=== PATIENT | male | born 1970 | race Caucasian/White ===

== ENCOUNTER 2018-06-09 02:08 | Outpatient (CLI) | payer MEDICARE, MEDICAID, SELFPAY ==
[2018-06-09 11:09] LABS: Hemoglobin A1C 5.6 % (4.5-6.2)
[2018-06-09 11:31] LABS: Cholesterol 188 mg/dL (50-200); HDL Cholesterol 30 mg/dL (40-60); LDL CHOLESTEROL 86 mg/dL (<100); TSH 1.93 uIU/mL (0.358-3.74); Triglyceride 393 mg/dL (30-150)
== END 2018-06-09 02:28 ==
PROVIDERS: PCP Emergency Medicine; Visit Provider Emergency Medicine
DX: R53.83 Other fatigue (principal); E78.5 Hyperlipidemia, unspecified; G40.309 Generalized idiopathic epilepsy and epileptic syndromes, not intractable, without status epilepticus; F84.0 Autistic disorder; Z79.899 Other long term (current) drug therapy
CPT/HCPCS: 36415; 80061; 83721; 83036; 84443

== ENCOUNTER → 2019-01-11 11:15 | Outpatient (BNVA) | payer MEDICARE, MEDICAID, SELFPAY | PROVIDERS: PCP Emergency Medicine; Referring Provider Emergency Medicine; Visit Provider Surgery | DX: L98.9 Disorder of the skin and subcutaneous tissue, unspecified (principal) | CPT/HCPCS: 99211; 99213 ==

== ENCOUNTER 2019-12-22 02:18 | Outpatient (CLI) | payer MEDICARE, MEDICAID, SELFPAY ==
[2019-12-22 12:37] LABS: Abs Immature Grans 0.03 k/cumm (0.0-0.09); Absolute Basophil Count 0.01 k/cumm (0.0-0.2); Absolute Lymphocyte Count 2.19 k/cumm (1.2-3.4); Absolute Monocyte Count 0.65 k/cumm (0.11-0.7); Absolute Neutrophil Count 4.08 k/cumm (1.2-6.7); Basophils % 0.1; HGB 15.7 g/dL (13.5-17.5); Immature Grans % 0.4 %; Lymphocytes % 31.5; Mean Corp. HGB Concentration 34.1 g/dL (32.0-36.0); Mean Corpuscular Hemoglobin 28.8 pg (27.0-33.0); Mean Corpuscular Volume 84.4 fL (80-95); Mean Platelet Volume 9.5 fL (8.0-11.0); Monocytes % 9.3; Neutrophils % 58.7; Platelet Count 228 x1000/uL (130-400); RBC 5.45 m/cumm (4.50-6.00); White Blood Cell Count 6.96 k/cumm (4.4-10.8)
[2019-12-22 12:42] LABS: ALT 17 U/L (16-63); AST 16 U/L (15-37); Albumin 4.1 g/dL (3.4-5.0); Alkaline Phosphatase 83 U/L (46-116); Anion Gap 6.8 mmol/L (3-11); BUN 11 mg/dL (7-18); Bilirubin, Total 0.4 mg/dL (0.2-1.0); CO2 31.2 mmol/L (21.0-32.0); CREATININE 1.11 mg/dL (0.70-1.30); Calcium 9.1 mg/dL (8.5-10.1); Chloride 101 mmol/L (98-107); Glucose 106 mg/dL (74-106); Potassium 4.4 mmol/L (3.5-5.1); Sodium 139 mmol/L (136-145); Total Protein 8.1 g/dL (6.4-8.2)
[2019-12-22 12:53] LABS: TROPONIN-I 8.4 ug/mL (4.0-12.0)
== END 2019-12-22 02:38 ==
PROVIDERS: PCP Emergency Medicine; Visit Provider Emergency Medicine
DX: G40.309 Generalized idiopathic epilepsy and epileptic syndromes, not intractable, without status epilepticus (principal); J45.909 Unspecified asthma, uncomplicated; Z51.81 Encounter for therapeutic drug level monitoring; Z79.899 Other long term (current) drug therapy
CPT/HCPCS: 36415; 80053; 80156; 85025

== ENCOUNTER 2020-12-05 11:04 | Outpatient (CLI) | payer MEDICARE, MEDICAID, SELFPAY ==
[2020-12-05 13:24] LABS: ALT 18 U/L (16-63); AST 14 U/L (15-37); Albumin 4.1 g/dL (3.4-5.0); Alkaline Phosphatase 92 U/L (46-116); Bilirubin, Direct 0.1 mg/dL (0.0-0.2); Bilirubin, Total 0.5 mg/dL (0.2-1.0); Total Protein 7.8 g/dL (6.4-8.2)
[2020-12-05 13:40] LABS: Calculated LDL 100 mg/dL (<100); Cholesterol 190 mg/dL (<200); HDL Cholesterol 32 mg/dL (40-60); TROPONIN-I 6.9 ug/mL (4.0-12.0); Triglyceride 292 mg/dL (<150)
== END 2020-12-05 11:05 | disposition home or self-care (01) ==
LOC: LOS 11:05
PROVIDERS: PCP Emergency Medicine; Visit Provider Emergency Medicine
DX: G40.409 Other generalized epilepsy and epileptic syndromes, not intractable, without status epilepticus (principal); Z51.81 Encounter for therapeutic drug level monitoring; Z79.899 Other long term (current) drug therapy; E78.5 Hyperlipidemia, unspecified
CPT/HCPCS: 36415; 80061; 80076; 80156

== ENCOUNTER 2021-12-12 16:24 | Outpatient (REF) | payer MEDICARE, MEDICAID, SELFPAY | END 2021-12-12 16:25 | disposition home or self-care (01) | LOC: LBN 16:24 | PROVIDERS: PCP Family Medicine; Visit Provider Family Medicine | DX: K60.3 Anal fistula (principal) | CPT/HCPCS: 87070; 87205 ==

== ENCOUNTER 2021-12-20 03:27 | Outpatient (CLI) | payer MEDICARE, MEDICAID, SELFPAY ==
[2021-12-20 12:40] LABS: HGB 15.9 g/dL (13.5-17.5); MCH 28.3 pg (27.0-33.0); MCHC 33.1 % (32.0-36.0); MCV 86 fL (80-95); MPV 9.4 fL (8.0-11.0); Platelet Count 207 10^3/uL (130-400); RBC 5.61 10^6/uL (4.36-5.78); RDW 12.7 % (11.8-14.1); RDW-SD 39.6 fL; WBC 5.72 10^3/uL (4.4-10.8)
[2021-12-20 12:53] LABS: ALT 17 U/L (16-63); AST 16 U/L (15-37); Albumin 4.1 g/dL (3.4-5.0); Alkaline Phosphatase 98 U/L (46-116); Anion Gap 4.3 mmol/L (3-11); BUN 12 mg/dL (7-18); Bilirubin, Total 0.5 mg/dL (0.2-1.0); CO2 32.7 mmol/L (21.0-32.0); Calcium 9.1 mg/dL (8.5-10.1); Calculated LDL 103 mg/dL (<100); Chloride 104 mmol/L (98-107); Cholesterol 205 mg/dL (<200); Glucose 105 mg/dL (74-106); HDL Cholesterol 37 mg/dL (40-60); Potassium 4.8 mmol/L (3.5-5.1); Sodium 141 mmol/L (136-145); TROPONIN-I 6.6 ug/mL (4.0-12.0); Total Protein 7.8 g/dL (6.4-8.2); Triglyceride 327 mg/dL (<150)
[2021-12-20 22:50] LABS: PSA, Screening 0.5 ng/mL (<=2.5)
[2021-12-21 10:08] LABS: HIV-1/2 Ag & Ab Screen Negative (Negative)
[2021-12-21 10:19] LABS: Hepatitis C Ab w Rflx HCV PCR Negative (Negative)
== END 2021-12-20 03:28 | disposition home or self-care (01) ==
LOC: LOS 03:27
PROVIDERS: Family Medicine; PCP Family Medicine; Visit Provider Family Medicine
DX: F84.0 Autistic disorder; G40.309 Generalized idiopathic epilepsy and epileptic syndromes, not intractable, without status epilepticus; Z12.5 Encounter for screening for malignant neoplasm of prostate; I10 Essential (primary) hypertension; K59.09 Other constipation; K60.1 Chronic anal fissure; B99.9 Unspecified infectious disease
CPT/HCPCS: 36415; 80053; 80061; 84153; 85027; 86803; 87389; 99213; 99214; 80156

== ENCOUNTER → 2022-01-11 00:34 | Outpatient (CLI) | payer MEDICARE, MEDICAID, SELFPAY ==
--- NOTE | 2022-01-11 07:00 | DI.CT_ITS ---
Exam(s) CT PELVIC WO EXAM: CT PELVIC WO CLINICAL HISTORY: preOp planning of fistula surgery,K60.2,K60.3,K60.1. TECHNIQUE: Imaging Protocol: Axial computed tomography images with coronal and sagittal reformatted images were created and reviewed. CONTRAST MATERIAL: Oral: Yes. The oral contrast has gotten to the level of the terminal ileum. COMPARISON: No exams were available for comparison FINDINGS: PELVIS: Abdominal Aorta: Abdominal portion non-dilated. Bowel: No obstruction or bowel wall thickening. Appendix is unremarkable. Peritoneal Cavity: No ascites, collection or mesenteric inflammatory response. No free air is identif ied. Soft Tissues: There are bilateral fat containing inguinal hernias, left larger than right. Bladder: The bladder is incompletely distended. There is thickening of the wall of the urinary bladd er. Reproductive Organs: Mildly enlarged prostate gland. Lymph Nodes: Within normal limits. Bones: Within normal limits. IMPRESSION: 1. No acute abnormality. 2. Thickening of the wall of the urinary bladder. This may be due to underdistention. Inflammatory/ infectious cystitis, bladder outlet obstruction or neurogenic bladder may also have this appearance. 3. Bilateral fat containing inguinal hernias. RADIATION DOSE DELIVERED: 454.61mGy.cmTotal DLP DATA REPOSITORY: All CT scans at this facility are submitted to the National Radiology Data Registry (NRDR) Dose Index Registry (DIR) with the [employer] (ACR). RADIATION OPTIMIZATION: All CT scans at this facility use at least one of these dose optimization te chniques: automated exposure control; mA and/or kV adjustment per patient size (includes targeted exa ms where dose is matched to clinical indication); or iterative reconstruction.
== END ==
PROVIDERS: PCP Family Medicine; Visit Provider Surgery
DX: F84.0 Autistic disorder (principal); K59.09 Other constipation; K60.1 Chronic anal fissure; K60.2 Anal fissure, unspecified; K60.3 Anal fistula; K40.20 Bilateral inguinal hernia, without obstruction or gangrene, not specified as recurrent; R93.89 Abnormal findings on diagnostic imaging of other specified body structures; Z01.818 Encounter for other preprocedural examination
CPT/HCPCS: 72192

== ENCOUNTER 2022-03-01 01:38 | Outpatient (CLI) | payer MEDICARE, MEDICAID, SELFPAY ==
[2022-03-01 10:45] LABS: Source Nasal/Nares
[2022-03-01 16:54] LABS: COVID-19 PCR Negative (Negative)
== END 2022-03-01 01:39 | disposition home or self-care (01) ==
LOC: LBO 01:38
PROVIDERS: PCP Family Medicine; Visit Provider Surgery
DX: Z01.818 Encounter for other preprocedural examination (principal); Z20.822 Contact with and (suspected) exposure to COVID-19
CPT/HCPCS: 87635

== ENCOUNTER 2022-03-05 09:02 | Observation (INO) | payer MEDICARE, MEDICAID, SELFPAY ==
[2022-03-05] VITALS (8 sets, daily range): BP systolic 91–143; BP diastolic 61–93; PULSE 69–90; RESP 15–22; TEMP 36.3–36.8; O2SAT 92–98; BMI 34.3
[2022-03-05] MEDS: Lidocaine/Prilocaine Cream 5 GM TUBE TP (10:00)
[2022-03-05] MEDS: Gabapentin 300 MG CAP 600 MG PO (10:05)
[2022-03-05] MEDS: Acetaminophen 500 MG TAB 1000 MG PO ×3 (10:05→22:18)
[2022-03-05] MEDS: Lactated Ringers 1,000 ML 100 ML IV (10:16)
[2022-03-05] MEDS: CIPROFLOXACIN 400 MG/200 ML BAG 200 MG IVPB (10:22)
[2022-03-05] MEDS: metroNIDAZOLE 500 MG/100 ML BAG 100 MG IVPB ×2 (11:30→19:41)
--- NOTE | 2022-03-05 12:11 | W.ANESPRE ---
General Info Date of Service Date Performed: 03/05/22 Height: 5 ft 4 in Weight: 90.8 kg Body Mass Index (BMI): 34.3 Surgical Procedure: Operation Date: 03/05/22 10:55 Proposed Procedure Side Surgeon p Fistulectomy Whitney Callahan, DO Meds Allergies and Home Medications Allergies Allergy/AdvReac Type Severity Reaction Status Date / Time No Known Allergies Allergy Verified 03/05/22 09:36 Home Medication Medication Instructions Recorded aripiprazole 20 mg tablet (Abilify) 20 mg PO HS ##90 06/07/13 diazepam 10 mg tablet 10 mg PO QHS 06/07/13 escitalopram oxalate 20 mg tablet 20 mg PO QAM ##90 06/07/13 lorazepam 1 mg tablet 1 mg PO BID 06/07/13 psyllium husk 2.6 gram/4.1 gram 1 tbs PO DAILY 06/07/13 oral powder risperidone 3 mg tablet 1.5 tab PO HS ##90 06/07/13 zolpidem 10 mg tablet 10 mg PO QHS 06/07/13 carbamazepine 200 mg 200 mg PO .AM 05/22/18 capsule,extended release [id number] simvastatin 20 mg tablet 20 mg PO DAILY #90 tab-caps 07/07/21 propranolol 120 mg capsule,24 120 mg PO DAILY #1 cap 07/30/21 hr,extended release albuterol sulfate 90 mcg/actuation 2 puff inhalation Q4H PRN ##3 11/07/21 aerosol inhaler carbamazepine 100 mg 300 mg PO DAILY 12/12/21 capsule,extended release [id number] Current Visit Medications: Current Medications Generic Name Dose Route Start Last Admin Trade Name Cameron PRN Reason Stop Dose Admin Acetaminophen 1,000 mg 03/05/22 06:00 03/05/22 10:05 Acetaminophen 500 Mg Tab PO 03/31/22 23:59 1,000 mg PREOP SHARDA Administration Acetaminophen 1,000 mg 03/05/22 16:00 Acetaminophen 325 Mg Tab PO Q6H SHARDA Diazepam 5 mg 03/05/22 06:00 Diazepam 5 Mg Tab PO 03/05/22 18:00 PREOP SHARDA Dibucaine 28 gm 03/05/22 13:00 Dibucaine 1% 28 Gm Tube TP 03/05/22 18:00 DIRECTED SHARDA Gabapentin 600 mg 03/05/22 06:00 03/05/22 10:05 Gabapentin 300 Mg Cap PO 03/31/22 23:59 300 mg PREOP SHARDA Administration Ciprofloxacin 400 mg in 200 mls @ 200 mls/hr 03/05/22 06:00 03/05/22 10:22 Cipro I.V. IVPB 03/05/22 18:00 200 mls/hr PREOP SHARDA Administration Protocol Metronidazole 500 mg in 100 mls @ 100 mls/hr 03/05/22 06:00 03/05/22 11:30 Flagyl IVPB 03/05/22 18:00 100 mls/hr PREOP SHARDA Administration Ringer's Solution 1,000 mls @ 100 mls/hr 03/05/22 06:15 03/05/22 10:16 IV 100 mls/hr INFUSION SHARDA Administration IV Miscellaneous Supplies 1 each 03/05/22 06:00 Iv Access IV 03/31/22 23:59 DIRECTED SHARDA Ibuprofen 600 mg 03/05/22 01:00 Ibuprofen 600 Mg Tab PO Q6H SHARDA Ketorolac Tromethamine 15 mg 03/05/22 00:09 Ketorolac 15 Mg/Ml Vial IVP 03/05/22 00:10 NOW ONE Lidocaine/Prilocaine 5 gm 03/05/22 06:00 03/05/22 10:00 Lidocaine/Prilocaine Cream 5 Gm Tube TP 03/05/22 18:00 5 applic DIRECTED SHARDA Administration Lorazepam 1 mg 03/05/22 06:00 Lorazepam 2 Mg/Ml Vial IVP 03/05/22 18:00 PREOP SHARDA Oxycodone HCl 5 mg 03/05/22 09:00 Oxycodone 5 Mg Tab PO Q3H PRN PRN Pain Sodium Chloride 0 ml 03/05/22 06:00 Normal Saline Flush 10 Ml Syr IV 03/31/22 23:59 PRN PRN Sodium Chloride 0 ml 03/05/22 06:00 Normal Saline 10 Ml Vial IJ 03/31/22 23:59 DIRECTED PRN Sterile Water 0 ml 03/05/22 06:00 Water,Injection,Sterile 10 Ml Vial IJ 03/31/22 23:59 DIRECTED PRN Tramadol HCl 100 mg 03/05/22 00:09 Tramadol 50 Mg Tab PO Q6H PRN PRN Pain PFSH Active Problems Active Problems: Problem Status Onset Code Chronic infection B99.9 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 Anal fissure and fistula K60.2, K60.3 Chronic constipation K59.09 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 Autistic disorder F84.0 Medical History Medical History Asthma Generalized convulsive epilepsy Remote, patient has been on Tegretol without any breakthrough seizures Genital herpes simplex perirectal Hyperlipidemia Keloid scar Mild intermittent asthma Remote history of symptoms, as needed albuterol use., Rarely needed Surgical History Surgical History Biopsy, Soft Tissue (04/02/17) anal lesion biopsy Circumcision (~2000) Tobacco Smoking/Tobacco Use Status: Never Alcohol Alcohol Intake: never Substance Use Substance use: Never Substance use type: does not use Counseling provided: none Vital Signs and Lab Results Vital Signs Most Recent Vital Signs in EMR: Most Recent Vital Signs Temp Pulse Resp BP Pulse Ox 36.3 C L 69 16 143/93 H 98 03/05/22 09:28 03/05/22 09:28 03/05/22 09:28 03/05/22 09:28 03/05/22 09:28 Lab Results Blood Type / Crossmatch: No Data to Display Complete Blood Count: No Data to Display Complete Metabolic Panel: No Data to Display Liver Function Panel: No Data to Display Coagulation Panel: No Data to Display Cardiac Panel: No Data to Display Arterial Blood Gas: No Data to Display Venous Blood Gas: No Data to Display Pancreas Panel: No Data to Display Thyroid Panel: No Data to Display Infectious Disease: Coronavirus (COVID-19)(PCR) Negative (Negative) 03/01/22 10:27 Coronavirus 2019 Source Nasal/Nares 03/01/22 10:27 Blood Cultures: No Data to Display Toxicology Panel: No Data to Display Anesthesia Assessment and Plan Anesthesia History Personal History: No History of Anesthesia Complications and No History of General Anesthesia Family History: No Family History of Anesthesia Complications Exercise Tolerance Exercise Tolerance: Metabolic Equivalents>4 Pertinent Negatives Pertinent Negatives: No Symptoms of GERD, No Major Cardiovascular Symptoms or Complaints, No Major Pulmonary Symptoms or Complaints and No History of CVA/TIA Cardiac & Pulmonary Exam Cardiac Exam: Normal S1/S2 Heart Sounds Pulmonary Exam: Clear Bilateral Breath Sounds Implantable Cardiac Device Does patient have a Pacemaker or an ICD?: No Airway Exam Known Difficult Airway: No Mallampati Class: 2 Mouth Opening: Normal (> 3cm) Thyromental Distance: Greater than 3 cm Neck Range of Motion: Full ROM Neck Circumference: Normal Teeth Condition: Normal Dentition ASA Classification ASA Score: ASA 2 Emergency Case?: No NPO Status NPO Status: NPO Clears >2 hours, Solids >8 hours Anesthesia Plan Resuscitation Status: Full Code Anesthesia Technique: General Anesthesia Airway Planned: Endotracheal Tube Monitors Used: Standard Monitors
--- NOTE | 2022-03-05 12:22 | HPE_ITS ---
Date of service: 03/05/22 Time of Service: 12:23 Assessment and Plan Assessment and plan (1) Chronic infection: Status: Acute (2) Chronic posterior anal fissure: Status: Acute Assessment and plan: see HPI (3) Anal fissure and fistula: Status: Acute (4) Chronic constipation: Status: Acute (5) Perianal fistula: Status: Acute (6) Autistic disorder: Status: Acute (7) Mild intermittent asthma: (8) Hyperlipidemia: (9) Asthma: History of Present Illness Narrative: Patient patient cannot give any history. All history is taken from his caregivers. They say there is been no interval change in his history or his medical patients. [facility] PATIENT NAME:? Stephon Cope UNIT #:? ? [id number] ADMITTING PROVIDER:? Whitney Callahan DO ACCOUNT #: ? [id number] ? PRIMARY CARE PROVIDER: RINKU OLEA MD ? DATE OF ADMIT:? ? 12/20/21 : ? 1970 ? Assessment & Plan (1) Perianal fistula: (2) Autistic disorder: Chronic -I did review all his notes in his chart regarding this.? It is questionable if this started with trauma or not. On exam today he does appear to have a mixed fistula with both an intersphincteric and an extra sphincteric component.? Patient will not allow for complete exam due to his severe autism. There is no way patient is going to allow an MRI or an ultrasound. We will get a CT scan. But ultimately I think he is going to require going to the OR for diagnosis.? He has never had problems with anesthesia in the past.? I will discuss this with his caregiver.? Because this is been going on for so I will long and the limited exam I can do this is most likely a complex fistula.? It is most likely going to result in multiple trips to the operating room for repair.? We will do initial evaluation, and further recommendations based on what that shows.? If this is a very complex fistula he may require evaluation by colorectal at [facility]. Also as he is not amendable to doing much wound care and cooperating, and this may be difficult to get this area to heal I will discuss his care with his guardian. 30 minutes is spent in consultation today (3) Chronic constipation: (4) Anal fissure and fistula: (5) Chronic posterior anal fissure: (6) Chronic infection: ?Orders C-Reactive Protein 10 Days F84.0 - Autistic disorder, K59.0 9 - Other constipation, K60.1 - Chronic anal fissure, K60.2 - Anal fissure, unspecified, K60.3 - Anal fistula ? CT pelvic wo 10 Days F84.0 - Autistic disorder, K59.0 9 - Other constipation, K60.1 - Chronic anal fissure, K60.2 - Anal fissure, unspecified, K60.3 - Anal fistula ? Plan Detail Total time on date of encounter, ([id number] and non [id number]) (minutes): 30 Time was spent: reviewing prior notes and diagnostics, providing direct patient care, ordering diagnostics and/or referrals, documenting today's visit, updating the EMR, coordinating care and other HPI here today with caregiver for evaluation of a chronic anal fistula. This has been very painful recently and he is quite anxious about having it checked. Patient has sent the year autistic disorder and learning disabilities.? He has been very reluctant to let anyone do an exam.? Information is taken from his caregiver Veronica that accompanies him today.? She says he has a lot of drainage that she notes in his underwear.? He does not talk about his toilet habits she is unclear how often he is moving his bowels, if he is straining or having problems with constipation.? He does appear to be in pain. Notes from prior surgery below. -From reviewing his records, this wound has been there since 04/2016.? He was in the ER at that point and they said it was an infectious etiology.? From reading Dr. Hess's note he says it was a self-inflicted wound. 04/15: ?In? the perineum, his chronic wound was present. It appeared to have healed over. I have seen this before when it has done this, but it has opened up and drained. I infiltrated local around the chronic wound and ? exploring near the perianal verge and the perineum, I did see a lesion that seemed to be possibly HPV. I infiltrated around this and then excised that creating an oval defect approximately 3 mm x 5 mm. This was cauterized and left open to heal. ? I then turned my attention to the chronic wound.? After anesthetized this, I did open the wound using a #15-blade scalpel in the direction of the lines of Langerhans, carried this down to the subcutaneous tissue. I did find a tract, which I probed, it was not very deep, but it did go into the subcutaneous tissue. There was a small blind pouch there. I extended my incision to 1.5 cm long. Using a self-retractor, I exposed the full abscess cavity and cauterized this so it would scar in, making sure, I had good hemostasis. I left the wound open; again, it was 1.5 cm long, less than 1 cm deep. The wounds were irrigated. I confirmed hemostasis. Placed a dry sterile dressing and mesh underwear to hold it in place. The patient was repositioned in supine position, extubated in the Operating Room and brought to the Postanesthesia Care Unit in good condition. There were no apparent complications during the case.? The patient tolerated it very well. 10/2016: Indications:?? This is a 46-year-old male with severe autism referred for chronic wound of the perineum.? He has had a small wound for almost a year that has not healed shut.? It started after he stabbed himself in the perineum for attention.? Ever since then, it has been intermittently bleeding, has not completely healed.? Recommendation was for examination under anesthesia to see if the wound needed further treatment.? ? Findings:?? Approximately 5 mm lesion was found in the 2 o'clock position approximately 2 cm from the anal verge.? Using a lacrimal probe, I did probe the wound.? There seemed to be a fairly large space lateral to this but I could not feel any connection to the rectum nor could I pass the probe into the rectum through this wound.? It appeared to be a hyper-granulation tissue present.? ? Procedure:?? The patient was brought to the preanesthesia staging area, identification confirmed, consent signed by the guardian.? He was then brought to the operating room.? Sedation was titrated for effect by the JOB PLACEMENT COUNSELOR.? An appropriate timeout was taken to review the patient's identification, allergies, medications, and procedure.? ? He was positioned in left lateral decubitus position after LMA was placed.? On examining the anus, the puncture wound was found at the 2 o'clock position approximately 2 cm in the anal verge.? He had some chronic tissue to this.? I did probe this with a lacrimal probe and found to evidence of a fistula.? I subsequently curetted it with silver nitrate as I believe this was just hyper- granulation tissue as it easily bled with probing.? ? A dry sterile dressing was applied and the patient was awakened in the operating room and brought to the postanesthesia care unit in good condition.? Dictated by:? RON OCRBIN DO -He did have a CT scan which I did review. Now there is no signs of any internal communication for bowel fistulas. I did have a meeting with Veronica and his guardian on 817. We discussed the pros and cons of surgery including not doing the procedure and complications of anesthesia. She is going to need to have serial dressing changes. Veronica understands this and she accepts responsibility for caring for him. Veronica said that he would allow her to do dressing changes when it is just the two of them. We will plan on keeping him overnight and Veronica will be allowed to stay with him. Risks of surgery were discussed with his guardian. Marielle Thomas from the [facility]. Risks include anesthesia, pneumonia, nonhealing, recurrence, bleeding, infections and other complications. patient did have an ear infection in But this was resolved with eardrops. Otherwise he is doing well and stable for procedure. I elected not to bowel prep him as I think this would only cause more problems. 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 Father No problems noted. Sister No problems noted. Brother No problems noted. Social History Smoking/Tobacco Use Status: Never Smoking risk assessment performed?: Yes Alcohol Intake: never Drug use: Never Substance use type: does not use Counseling given: No Counseling provided: none Additional Social history: Unable to assess [facility] Allergies and Home Medications Allergies Allergy/AdvReac Type Severity Reaction Status Date / Time No Known Allergies Allergy Verified 03/05/22 09:36 Home Medications Medication Instructions Recorded Confirmed Type aripiprazole 20 mg tablet (Abilify) 20 mg PO HS ##90 06/07/13 03/05/22 History diazepam 10 mg tablet 10 mg PO QHS 06/07/13 03/05/22 History escitalopram oxalate 20 mg tablet 20 mg PO QAM ##90 06/07/13 03/05/22 History lorazepam 1 mg tablet 1 mg PO BID 06/07/13 03/05/22 History psyllium husk 2.6 gram/4.1 gram 1 tbs PO DAILY 06/07/13 03/05/22 History oral powder risperidone 3 mg tablet 1.5 tab PO HS ##90 06/07/13 03/05/22 History zolpidem 10 mg tablet 10 mg PO QHS 06/07/13 03/05/22 History carbamazepine 200 mg 200 mg PO .AM 05/22/18 03/05/22 History capsule,extended release [id number] simvastatin 20 mg tablet 20 mg PO DAILY #90 tab-caps 07/07/21 03/05/22 Rx propranolol 120 mg capsule,24 120 mg PO DAILY #1 cap 07/30/21 03/05/22 Rx hr,extended release albuterol sulfate 90 mcg/actuation 2 puff inhalation Q4H PRN ##3 11/07/21 03/05/22 Rx aerosol inhaler carbamazepine 100 mg 300 mg PO DAILY 12/12/21 03/05/22 History capsule,extended release [id number] Exam Resp Effort & Inspection: normal respiratory effort and able to speak in complete sentences Auscultation: clear to auscultation bilaterally Cardio Rate: regular rate Rhythm: regular rhythm GI Palpation: soft and nontender Other: Rectal is deferred until procedure Results Last Vital Signs Temp 36.3 C L 03/05/22 09:28 Pulse 69 03/05/22 09:28 Resp 16 03/05/22 09:28 BP 143/93 H 03/05/22 09:28 Pulse Ox 98 03/05/22 09:28
[2022-03-05] MEDS: Dibucaine 1% 28 GM TUBE TP (13:30)
[2022-03-05] MEDS: Bupivacaine 0.25% Pres-Free W/EPI 30 ML VIAL (13:39)
--- NOTE | 2022-03-05 14:00 | W.PM.OP ---
Date of service: 03/05/22 Time of Service: 14:00 Operative Note Operative Note DATE OF PROCEDURE: 03/05/22 PRE-OP DIAGNOSIS: chronic anal fistula w/ infection POST-OP DIAGNOSIS: same PROCEDURE: Exam under anesthesia was fistulotomy SURGEON: Whitney Callahan PAPER CAP MACHINE OPERATOR: Whitney Fernandes ANESTHESIA TYPE: Local By Surgeon and General LMA/ETT Refer to Anesthesia Record ESTIMATED BLOOD LOSS: 5 PATHOLOGY: other COMPLICATIONS: None Patient was transported to: PACU Procedure Description: Patient has a chronically infected nonhealing anal fistula and is here today for excision and drainage. Informed consent is obtained explaining risks and benefits of the procedure from his legal guardian Marielle Huang. Risks include but are not limited to: Bleeding, infection, scarring, recurrence, loss of control of the sphincters, stenosis, and complications of the anesthesia. Patient is brought to the operative room suite. General anesthesia is ministered per the department of anesthesia. Patient is then placed in the prone position with all bony surfaces padded. He did receive preop antibiotics. He did not do a bowel prep. The patient is prepped and draped in the usual sterile fashion using a Betadine scrub solution. Timeout is performed. 20 cc of 1% lidocaine with epi is used for local anesthetization. The fistula is in the 2 o'clock position in prone positioning. Smith retractors were used for visualization. There is a scant amount of purulent material that ambulates from the old tract. This is cultured. The old tract is excised with #15 blade. A groove director is placed and does show that it exits into the rectum. There is an area of chronic unhealthy granulation tissue at the exit point in the rectum. This area in the rectum is excised as well. The tract is intrasphincteric. The portion of the tract that runs through the sphincters is curetted but not open and a seton is placed in. All nonviable tissue is removed. It is irrigated with saline. There is no bleeding noted. Dibucaine impregnated packing is then placed. Sterile dressings are applied. Patient tolerated procedure well without complication and transferred to recovery room in stable condition. Veronica his caregiver and Marielle the guardian were given updates on patient's progress and prognosis. He tolerated the procedure well and was transferred to recovery room in stable condition.
[2022-03-05] MEDS: Ketorolac 15 MG/ML VIAL IVP ×2 (14:18→19:40)
[2022-03-05] MEDS: Normal Saline 500 ML 30 ML IV (15:15)
[2022-03-05] MEDS: cefTRIAXone 1 GM/50 ML BAG IVPB (15:16)
--- NOTE | 2022-03-05 16:06 | PDOC.HHF2F ---
Home Health Certification Home Health Certification: 1. Encounter Date and Reason I certify that Stephon Cope was seen by Whitney Callahan on 03/05/22 and that I had a [id number] encounter with this patient that meets the physician face to face encounter requirements. 2. Clinical Findings Supporting Skilled Need and Homebound Status I certify that home health services are medically necessary, include either intermittent residential and/or physical/speech therapy, and that this patient is homebound in that absences from the home require considerable and taxing effort and are infrequent or of short duration, or are attributable to the need to receive medical care. [X] (a) Attached documentation from encounter provides clinical findings supporting skilled need and homebound status (including what assistance patient requires to leave the home). The encounter with the patient was in whole, or in part, for the following medical condition, which is the primary reason for home health care: Retirement: dressing changes wound care supplies Physical Therapy: Speech Therapy: Homebound: yes. does not drive 3. Certification and Authentication I certify that I composed the above information based on my clinical judgement relating to this patient's medical condition and, if applicable, clinical findings communicated to me by the NPP or inpatient physician who performed the Home Health Referral. All further orders will be obtained through [facility] (Community Based Physician - PCP)
--- NOTE | 2022-03-05 16:10 | W.PM.DS.N ---
DS: Diagnosis Discharge Diagnosis (1) Chronic infection: Status: Acute (2) Chronic posterior anal fissure: Status: Acute (3) Anal fissure and fistula: Status: Acute (4) Chronic constipation: Status: Acute (5) Perianal fistula: Status: Acute (6) Autistic disorder: Status: Acute Discharge Plan Discharge Details Admit Date/Time: 03/05/22 09:02 Admit Provider: Whitney Callahan Attending Provider: Whitney Callahan Primary Care Provider: Kushal Robertson Home Meds and New Rx's Prescriptions: No Action carbamazepine 200 mg capsule, ER multiphase 12 hr 200 mg PO .AM carbamazepine 100 mg capsule, ER multiphase 12 hr 300 mg PO DAILY Label Comments: in pm propranolol 120 mg capsule,extended release 24 hr 120 mg PO DAILY Qty: 1 0RF albuterol sulfate 90 mcg/actuation HFA aerosol inhaler 2 puff Inhalation Q4H PRN Qty: 3 5RF risperidone 3 MG tablet 1.5 tab PO HS Qty: 90 Label Comments: 04/25/17-Taking 1.5 mg hs/pps lorazepam 1 MG tablet 1 mg PO BID diazepam 10 MG tablet 10 mg PO QHS zolpidem 10 MG tablet 10 mg PO QHS escitalopram oxalate 20 MG tablet 20 mg PO QAM Qty: 90 aripiprazole [Abilify] 20 MG tablet 20 mg PO HS Qty: 90 psyllium husk 480 GM powder 1 tbs PO DAILY simvastatin 20 mg tablet 20 mg PO DAILY Qty: 90 4RF DS: Data Vitals/I&O Vitals and I&O: Vital Signs Temperature 36.7 C 03/05/22 15:14 Temperature Source Tympanic 03/05/22 15:14 Pulse 82 03/05/22 15:14 Pulse Rhythm Regular 03/05/22 16:02 Respiratory Rate 15 03/05/22 15:14 Respiratory Effort 03/05/22 16:02 Respiratory Depth Normal 03/05/22 16:02 Respiratory Pattern Normal 03/05/22 16:02 Blood Pressure 111/73 03/05/22 15:14 Pulse Oximetry 95 03/05/22 15:14 Respiratory End-tidal CO2 39 03/05/22 14:36 Oxygen Delivery Method Room Air 03/05/22 15:14 Oxygen Flow Rate 0 03/05/22 15:14 Pain Level 0 03/05/22 15:16 Intake & Output 03/04/22 03/05/22 03/05/22 23:59 11:59 23:59 Intake Total 566.667 / 566.667 Output Total 100 / 100 Balance 466.667 / 466.667 Weight 90.8 kg 90.8 kg Intake: IV 566.667 / 566.667 Output: Urine 100 / 100 Other: Urine Color Dark Quin Emesis Description None Voiding Methods Urinal Data Completed and Pending Labs on day of discharge: 03/05/22 13:10 Rectal Anal Culture - Pending 03/05/22 13:10 Fistula Anaerobic Culture - Pending Preliminary micro results at discharge 03/05/22 13:10 Anal Culture - Pending Rectal 03/05/22 13:10 Anaerobic Culture - Pending Fistula PFSH All Active Problems Chronic infection (Acute) The anus Chronic posterior anal fissure (Acute) Anal fissure and fistula (Acute) Chronic constipation (Acute) Perianal fistula (Acute) 11/2021 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 Father No problems noted. Sister No problems noted. Brother No problems noted. Social History Smoking/Tobacco Use Status: Never Smoking risk assessment performed?: Yes Alcohol Intake: never Drug use: Never Substance use type: does not use Counseling given: No Counseling provided: none Additional Social history: Unable to assess chase
[2022-03-05] MEDS: Normal Saline 1,000 ML 125 ML IV (16:13)
--- NOTE | 2022-03-05 20:19 | W.PM.PROGNOT ---
Date of Service Date of service: 03/05/22 Time of Service: 20:19 Assessment and Plan Assessment and plan (1) Chronic infection: Status: Acute (2) Chronic posterior anal fissure: Status: Acute Assessment and plan: The patient is doing well post-op. Their pain is well controlled. They are having no nausea or vomiting. The pt is not having any chest pain or SOB, productive cough; no calf pain or swelling. The pt is making good urine. The pt pain is adequately controlled. The case was discussed with nursing and patient?s progress reviewed. All of the pt's home medications were addressed and adjusted accordingly for their oral intact status. HEENT: no jaundice. no eye pain/drainage/redness/swelling. Mild sore throat Cardio- NSR no chest pain, BP stable. Pulm: no sob or productive cough. no hemoptysis Incision- clean/dry. Dressing intact no excessive bleeding or drainage Cultures- pd. I think this is a chronic inflammatory state. We will continue him on abx while he is in the hospital- but I don't' think we need to continue them as an outpt. I did put packing in postOP, It is a small cavity, and I'm not sure if he will tolerate the packing. I discussed with Veronica and his guardian/ Marielle, about the findings in surgery and the pt's progress. We reviewed expectations for progress in the hospital; what the pt could expect for recovery time and length of stay. We discussed the importance of walking and pulmonary toilet to avoid blood clots and pneumonia. Continue current plans for pulmonary toilet, GI and DVT prophylaxis. We shall continue the current plan for pain management as it is at an appropriate level, and working well for the pt. Appropriate measures will be taken for constipation prevention, and this was also reviewed with the pt. The wound care plan was reviewed with nursing as well. see orders (3) Anal fissure and fistula: Status: Acute (4) Chronic constipation: Status: Acute (5) Perianal fistula: Status: Acute (6) Asthma: (7) Generalized convulsive epilepsy: (8) Hyperlipidemia: (9) Mild intermittent asthma: Objective Last Vital Signs Temp 36.7 C 03/05/22 15:14 Pulse 82 03/05/22 15:14 Resp 15 03/05/22 15:14 BP 111/73 03/05/22 15:14 Pulse Ox 95 03/05/22 15:14
[2022-03-05] MEDS: risperiDONE 0.5 MG TAB 1.5 MG PO (22:16)
[2022-03-05] MEDS: diazePAM 5 MG TAB 10 MG PO (22:17)
[2022-03-05] MEDS: ARIPiprazole 5 MG TAB 20 MG PO (22:17)
[2022-03-05] MEDS: Zolpidem 10 MG TAB PO (22:18)
[2022-03-05] MEDS: Simvastatin 20 MG TAB PO (22:18)
[2022-03-06] MEDS: MORPHine 2 MG/ML SYR IVP (03:10)
[2022-03-06] MEDS: metroNIDAZOLE 500 MG/100 ML BAG 100 MG IVPB ×2 (03:10→11:26)
[2022-03-06] MEDS: Ketorolac 15 MG/ML VIAL IVP ×3 (03:11→14:06)
[2022-03-06] MEDS: Acetaminophen 500 MG TAB 1000 MG PO ×2 (03:12→10:20)
[2022-03-06 07:04] LABS: Platelet Count 182 10^3/uL (130-400)
[2022-03-06 07:46] VITALS: BP 112/73; PULSE 77; RESP 18; TEMP 37.1; O2SAT 97
[2022-03-06] MEDS: Enoxaparin 40 MG/0.4 ML SYR SC (07:48)
[2022-03-06] MEDS: Polyethylene Glycol 3350 17 GM PACKET PO (07:48)
[2022-03-06] MEDS: Propranolol 60 MG CAPCR 120 MG PO (07:49)
[2022-03-06] MEDS: Escitalopram 20 MG TAB PO (07:49)
--- NOTE | 2022-03-06 10:30 | W.ANESPOSTOP ---
Postoperative Evaluation Date, Time and Location Date Performed: 03/06/22 Time Performed: 10:30 Patient Location: Day Surgery Unit Vital Signs Most Recent Imported Vital Signs: Most Recent Vital Signs Temp Pulse Resp BP Pulse Ox 37.1 C 77 18 112/73 97 03/06/22 07:46 03/06/22 07:46 03/06/22 07:46 03/06/22 07:46 03/06/22 07:46 Pain Score Most Recent Pain Score: Most Recent Pain Score Pain Level 3 03/06/22 10:20 Assessment Mental Status: Awake (Alert & Oriented to Patient Baseline) Airway and Respiratory Function: Patent airway with normal (patient baseline) respiratory exam Cardiovascular Function: Hemodynamically Stable Hydration Status: Adequately Hydrated Nausea & Vomiting: No Nausea or Vomiting Pain: Pt. Denies Any Pain Peripheral Nerve Block: Patient did not receive a nerve block Postoperative Comments:: Patient seen yesterday in PACU and was doing well.
--- NOTE | 2022-03-06 13:33 | W.PM.DS.N ---
Date of service: 03/06/22 Time of Service: 13:33 DS: Diagnosis Discharge Diagnosis (1) Anal fissure and fistula: Status: Acute Asessment and Plan: Status post incision and drainage with seton placement Continue topical wound care with daily dressing changes and sitz bath Follow-up in the office March 11 Discharge Plan Disposition Patient Disposition: HOME Condition: Stable Discharge Details Reason For Visit: jordan-anal abscess with fistula Admit Date/Time: 03/05/22 09:02 Admit Provider: Whitney Callahan Attending Provider: Whitney Callahan Primary Care Provider: Kushal Robertson Hospital Course Hospital Course: Ab is a 51-year-old male with autism who presents with chronic anal fistula. He underwent exam under anesthesia with Dr. Callahan and drainage of an enteric sphincteric abscess with placement of seton. He tolerated the procedure well. Changes packing on March 06. It was clean and healthy appearing. I demonstrated proper wound care techniques with Veronica (his caregiver), who will assist with wound care at home. We will follow-up with us in the office early next week Home Meds and New Rx's Prescriptions: Continued carbamazepine 200 mg capsule, ER multiphase 12 hr 200 mg PO .AM carbamazepine 100 mg capsule, ER multiphase 12 hr 300 mg PO DAILY Label Comments: in pm propranolol 120 mg capsule,extended release 24 hr 120 mg PO DAILY Qty: 1 0RF albuterol sulfate 90 mcg/actuation HFA aerosol inhaler 2 puff Inhalation Q4H PRN Qty: 3 5RF risperidone 3 MG tablet 1.5 tab PO HS Qty: 90 Label Comments: 04/25/17-Taking 1.5 mg hs/pps lorazepam 1 MG tablet 1 mg PO BID diazepam 10 MG tablet 10 mg PO QHS zolpidem 10 MG tablet 10 mg PO QHS escitalopram oxalate 20 MG tablet 20 mg PO QAM Qty: 90 aripiprazole [Abilify] 20 MG tablet 20 mg PO HS Qty: 90 psyllium husk 480 GM powder 1 tbs PO DAILY simvastatin 20 mg tablet 20 mg PO DAILY Qty: 90 4RF Discharge Instructions Instructions: Anorectal Abscess and Anal Fistula (DC) Additional Instructions: 1. Resume all of your medications. 2. Okay to use tylenol and ibuprofen over the counter as needed. 3. Leave bandage in place for 24 hours, then remove. Wash with warm soapy water and rinse clean. Gently replace small amount of packing gauze and bandage. 4. Repeat this daily. 5. Use a sitz bath after every bowel movement, or as necessary for bandage contamination 6. Call the office (or go directly to the emergency room after hours) if you notice any of the following: Develop chills (warm to touch), or if you have a thermometer and your temperature is above 101 Difficulty breathing or difficultly swallowing Persistent vomiting Any bleeding ? exceeding one tablespoon 7. Call your physician if the site where your intravenous was started becomes red, swollen, painful, and warm to touch. Stand Alone Forms: Nursing Discharge Form Referrals: Whitney Callahan DO [OSTEOPATHIC DOCTOR] - 03/11/22 2:30 pm Activity:: Activity as Tolerated Equipment/Supplies:: sitz bath Diet:: As Tolerated Discharge Orders Discharge Orders: Discharge Order (Routine); Ordered 03/06/22 Ordered By: Marshall Cisneros Discharge Data Discharge Date/Time-TO BE ENTERED AT DEPARTURE: 03/06/22 14:50 DS: Summary Time Spent with Patient providing and/or coordinating discharge services: Greater than 30 minutes Status at Discharge Functional status at discharge: independent ambulation Overall status at discharge: patient is progressing back to baseline Mental Status: mental status grossly normal Speech and Movement: speech and movement normal Mood: congruent mood Affect: normal affect Exam Const General: cooperative, healthy appearing and comfortable Orientation: awake and oriented x3 Limitations: behavioral limitations (severe autism) Eyes General: appearance normal, both eyes and all related structures Conjunctivae: conjunctivae normal Sclera: sclerae normal Resp Effort & Inspection: normal respiratory effort and able to speak in complete sentences Cardio Jugular venous pressure: no JVD Rate: regular rate GI Inspection: non-distended Palpation: soft, no guarding, no hernias and nontender Auscultation: normal bowel sounds Rectal Exam: other (Well drained perianal abscess, with minimal erythema.) Skin General skin exam: normal turgor Neuro General: patient alert, patient awake and patient oriented x3 Cognition: normal cognition Extrem Right lower extremity: no edema Left lower extremity: no edema Psych Mental Status: mental status grossly normal Speech and Movement: speech and movement normal Mood: congruent mood Affect: normal affect DS: Data Vitals/I&O Vitals and I&O: Vital Signs Temperature 98.8 F 03/06/22 07:46 Temperature Source Tympanic 03/06/22 07:46 Pulse 77 03/06/22 07:46 Pulse Rhythm Regular 03/06/22 09:50 Respiratory Rate 18 03/06/22 07:46 Respiratory Effort Non-Labored 03/06/22 09:50 Respiratory Depth Normal 03/06/22 09:50 Respiratory Pattern Normal 03/06/22 09:50 Blood Pressure 112/73 03/06/22 07:46 Pulse Oximetry 97 03/06/22 07:46 Respiratory End-tidal CO2 39 03/05/22 14:36 Oxygen Delivery Method Room Air 03/06/22 07:46 Oxygen Flow Rate 0 03/06/22 07:46 Pain Level 3 03/06/22 10:20 Intake & Output 03/05/22 03/06/22 03/06/22 23:59 11:59 23:59 Intake Total 1217.167 / 5584.682 1206 / 2190 Output Total 650 / 650 Balance 567.167 / 740.947 6857 / 2190 Weight 200 lb 2.876 oz Intake: IV 747.167 / 376.237 8230 / 1100 Oral 470 / 470 1090 / 1090 Output: Urine 650 / 650 Other: Urine Color Yellow Yellow Urine Appearance Clear Clear Urine Odor None Comment patient refused alvarado placement is voiding appropriately pT voided in the toilet. 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 Father No problems noted. Sister No problems noted. Brother No problems noted. Social History Smoking/Tobacco Use Status: Never Smoking risk assessment performed?: Yes Alcohol Intake: never Drug use: Never Substance use type: does not use Counseling given: No Counseling provided: none Additional Social history: Unable to assess chase
[2022-03-06] MEDS: cefTRIAXone 1 GM/50 ML BAG IVPB (14:05)
--- NOTE | 2022-03-06 16:59 | PDOC.CMPRO ---
- If Service Date Differs Date of service: 03/06/22 Time of Service: 17:00 Care Management Progress Note CM updated guardian information in patient chart and attempted to secure signatures for [employer]UN IMM. No response from guardian at time of documentation. IMM form faxed to [place] directly at [facility]. Ab will return to caregiver, Veronica's home in [place], [place]. No additional services needed at this time, per surgeon. Ab will resume community based supports and follow up with surgical services and PCP. They will transport via private vehicle with Veronica.
== END 2022-03-06 14:50 | disposition home or self-care (01) ==
LOC: PDS 12:34 → MS 17:01 → PDS 17:04 → MS 17:05
PROVIDERS: Admitting Provider Surgery; PCP Family Medicine; Visit Provider Surgery
PROC: (CPT 46275; principal; 2022-03-05 10:45)
DX: K60.5 Anorectal fistula (principal); F84.0 Autistic disorder; K59.09 Other constipation; Z79.899 Other long term (current) drug therapy; J45.20 Mild intermittent asthma, uncomplicated; G40.409 Other generalized epilepsy and epileptic syndromes, not intractable, without status epilepticus; E78.5 Hyperlipidemia, unspecified; K62.89 Other specified diseases of anus and rectum
CPT/HCPCS: 46275; 46020; 36415; 99218; J1650; 85049; 87070; 87075; G0378; J0696; J0744; J1100; J1885; J2250; J2270; J2405; J2704; J3010; J3490

== ENCOUNTER → 2022-03-11 14:22 | Outpatient (BNVA) | payer MEDICARE, MEDICAID, SELFPAY | PROVIDERS: PCP Family Medicine; Referring Provider Family Medicine; Visit Provider Surgery | DX: K60.1 Chronic anal fissure (principal); K60.3 Anal fistula; K59.09 Other constipation; F84.0 Autistic disorder; G40.309 Generalized idiopathic epilepsy and epileptic syndromes, not intractable, without status epilepticus; E78.5 Hyperlipidemia, unspecified; J45.20 Mild intermittent asthma, uncomplicated ==

== ENCOUNTER → 2022-04-08 11:15 | Outpatient (BNVA) | payer MEDICARE, MEDICAID, SELFPAY | PROVIDERS: PCP Family Medicine; Referring Provider Family Medicine; Visit Provider Surgery | DX: K60.3 Anal fistula (principal); K59.09 Other constipation; L91.0 Hypertrophic scar; F84.0 Autistic disorder ==

== ENCOUNTER → 2022-05-13 13:34 | Outpatient (BNVA) | payer MEDICARE, MEDICAID, SELFPAY | PROVIDERS: PCP Family Medicine; Referring Provider Family Medicine; Visit Provider Surgery | DX: K60.1 Chronic anal fissure (principal); K60.3 Anal fistula; K59.09 Other constipation; F84.0 Autistic disorder ==

== ENCOUNTER → 2022-06-17 10:48 | Outpatient (BNVA) | payer MEDICARE, MEDICAID, SELFPAY | PROVIDERS: PCP Family Medicine; Referring Provider Family Medicine; Visit Provider Surgery | DX: K60.3 Anal fistula (principal); F84.0 Autistic disorder ==

== ENCOUNTER → 2022-07-19 10:34 | Outpatient (BNVA) | payer MEDICARE, MEDICAID, SELFPAY | PROVIDERS: PCP Family Medicine; Referring Provider Family Medicine; Visit Provider Surgery | DX: Z09 Encounter for follow-up examination after completed treatment for conditions other than malignant neoplasm (principal) ==

== ENCOUNTER 2023-01-01 02:43 | Outpatient (CLI) | payer MEDICARE, MEDICAID, SELFPAY ==
[2023-01-01 12:24] LABS: HCT 48.2 % (40.0-50.0); HGB 16.4 g/dL (13.5-17.5); MCH 28.9 pg (27.0-33.0); MCV 85 fL (80-95); Platelet Count 250 10^3/uL (130-400); RBC 5.67 10^6/uL (4.36-5.78); RDW 12.6 % (11.8-14.1); RDW-SD 39.1 fL; WBC 6.89 10^3/uL (4.4-10.8)
[2023-01-01 12:34] LABS: Calculated LDL 75 mg/dL (<100); Cholesterol 176 mg/dL (<200); HDL Cholesterol 32 mg/dL (40-60); TROPONIN-I 8.7 ug/mL (4.0-12.0); Triglyceride 345 mg/dL (<150)
[2023-01-02 10:36] LABS: PSA, Screening 0.5 ng/mL (<=3.5)
== END 2023-01-01 02:44 | disposition home or self-care (01) ==
LOC: LOS 02:43
PROVIDERS: PCP Family Medicine; Visit Provider Family Medicine
DX: E78.5 Hyperlipidemia, unspecified (principal); Z12.5 Encounter for screening for malignant neoplasm of prostate; R53.83 Other fatigue; R56.9 Unspecified convulsions
CPT/HCPCS: 36415; 80061; 84153; 85027; 80156

== ENCOUNTER 2024-01-21 12:17 | Outpatient (CLI) | payer MEDICARE, MEDICAID, SELFPAY ==
[2024-01-21 12:14] LABS: Hemoglobin A1C 5.5 % (<5.7)
[2024-01-21 12:20] LABS: Cholesterol 182 mg/dL (<200); HDL Cholesterol 34 mg/dL (40-60); Triglyceride 418 mg/dL (<150)
[2024-01-21 12:34] LABS: LDL CHOLESTEROL 91 mg/dL (<100)
== END 2024-01-21 12:18 | disposition home or self-care (01) ==
LOC: LBO 12:18
PROVIDERS: PCP Family Medicine; Visit Provider Family Medicine
DX: E78.5 Hyperlipidemia, unspecified (principal); E11.51 Type 2 diabetes mellitus with diabetic peripheral angiopathy without gangrene; I70.209 Unspecified atherosclerosis of native arteries of extremities, unspecified extremity
CPT/HCPCS: 36415; 80061; 83721; 83036

== ENCOUNTER 2024-03-03 14:22 | Outpatient (CLI) | payer MEDICARE, MEDICAID, SELFPAY ==
[2024-03-03 13:28] LABS: TROPONIN-I 9.9 ug/mL (4.0-12.0)
--- OUTSIDE RECORDS SUMMARY | 2024-03-03 14:24 | XMS_ITS | Encounter Summary ---
Author Organization [facility] Address [address] [place] [address] Care Team Providers Care Wellness Instructor Name Role Phone Nam Hennessy MD Primary Care Provider [phone] Encounter Details Date Type Department Care Team (Late st Contact Info) Description 12/20/2021 Lab Requisition [facility] Pathology & Laboratory Medicine - [address] [address] Outr Resulting Lab, Provider Social History Tobacco Use Types Packs/Day Years Used Date Smoking Tobacco: Never Assessed Interpersonal Safety Answer Date Record ed Physically Hurt Never 01/30/2020 Verbally Threaten Not on file 01/30/2020 Sex and Gender Information Value Date Recorded Sex Assigned at Not on file Gender Identity Not on file Sexual Orientation Not on file documented as of this encounter Plan of Treatment Not on file documented as of this encounter Procedures Procedure Name Priority Date/Time Associated Diagnosis Comments HIV 1/2 ANTIGEN AND ANTIBODY, 4TH GENERATION Routine 12/20/2021 10:13 EDT documented in this encounter Results * HIV 1/2 ANTIGEN AND ANTIBODY, 4TH GENERATION (12/20/2021 10:13 EDT) HIV 1 and 2 Antibody/p24 Antigen, 4th Generation Negative Negative 12/21/2021 10:[address] [facility] Comment:If acute HIV-1 infec tion is suspected in a high risk patient, submit plasma specimen for HIV-1 RNA quantitation test. Blood VENOUS BLOOD / Unknown 12/20/2021 10:13 EDT 12/20/2021 21:[address] [facility] - 12/21/2021 10:03 EDT Fourth Generation assay performed on the [employer] XPT. Provider Outr Resulting Lab IMMUNOLOGY A ND SEROLOGY ORDERABLES [facility] [address] [place] [address] documented in this encounter Visit Diagnoses Not on filedocumented in this encounter Care Teams Wellness Instructor Relationship Specialty Start Date End Date Nam Hennessy MD [address] [place] [id number] PCP - General 05/21/15 documented as of this encounter
--- OUTSIDE RECORDS SUMMARY | 2024-03-03 14:24 | XMS_ITS | Encounter Summary ---
Author Organization [facility] Address [address] [place] [address] Care Team Providers Care Maintenance Mechanic Name Role Phone Nam Hennessy MD Primary Care Provider [phone] Encounter Details Date Type Department Care Team (Late st Contact Info) Description 12/20/2021 Lab Requisition [facility] Pathology & Laboratory Medicine - [address] [address] Outr Resulting Lab, Provider Social History Tobacco [...] Procedure Name Priority Date/Time Associated Diagnosis Comments HEPATITIS C AB W REFLEX TO HCV RNA BY PCR Routine 12/20/2021 10:13 EDT PSA TOTAL, DIAGNOSTIC Routine 12/20/2021 10:13 EDT documented in this encounter Results * PSA TOTAL, DIAGNOSTIC (12/20/2021 10:13 EDT) PSA 0.5 <=2.5 ng/mL 12/20/2021 22:45 EDT [facility] Blood VENOUS BLOOD / Unknown 12/20/2021 10:13 EDT 12/20/2021 21:24 EDT Narrative [facility] - 12/20/2021 22:45 EDT NOTE: Serum PSA concentration should not be interpreted as absolute evidence for the presence or absence of malignant disease. Assayed on Siemens [employer] XPT using chemiluminescent technology.??Values obtained by using different assay methods cannot be used interchangeably. Provider Outr Resulting Lab CHEMISTRY & BLOOD GAS ORDERABLES Performing Organization Address City/[facility]/ZIP Co de Phone Number [facility] [address] [place] [address] * HEPATITIS C AB W REFLEX TO HCV RNA BY PCR (12/20/2021 10:13 EDT) Hep C Antibody Negative Negative 12/21/2021 10:15 EDT [facility] Blood VENOUS BLOOD / Unknown 12/20/2021 10:13 EDT 12/20/2021 21:24 EDT Provider Outr Resulting Lab CHEMISTRY & BLOOD GAS ORDERABLES Performing Organization Address City/[facility] Co de Phone Number [facility] [address] [place] [address] documented in this encounter Visit Diagnoses Not on filedocumented in this encounter Care Teams Maintenance Mechanic Relationship Specialty Start Date End Date Nam Hennessy MD [address] [place] [id number] PCP - General 05/21/15 documented as of this encounter
--- OUTSIDE RECORDS SUMMARY | 2024-03-03 14:24 | XMS_ITS | Referral Summary ---
Author Organization [facility] Address [address] [place] [id number] Care Team Providers Care Time Recorder Name Role Phone Nam Hennessy MD Primary Care Provider [phone] Social History Tobacco Use Types Packs/Day Years Used Date Smoking Tobacco: Never Assessed Interpersonal Safety Answer Date Record ed Physically Hurt Never 01/30/2020 Verbally Threaten Not on file 01/30/2020 Sex and Gender Information Value Date Recorded Sex Assigned at Not on file Gender Identity Not on file Sexual Orientation Not on file Plan of Treatment Not on file Procedures Procedure Name Priority Date/Time Associated Diagnosis Comments HEPATITIS C AB W REFLEX TO HCV RNA BY PCR Routine 12/20/2021 10:13 EDT from Last 3 Months or Most Recently Relevant to Health Maintenance Results * HEPATITIS C AB W REFLEX TO HCV RNA BY PCR (12/20/2021 10:13 EDT) Hep C Antibody Negative Negative 12/21/2021 10:15 EDT [facility] Blood VENOUS BLOOD / Unknown 12/20/2021 10:13 EDT 12/20/2021 21:24 EDT Provider Outr Resulting Lab CHEMISTRY & BLOOD GAS ORDERABLES [facility] [address] [place] [address] from Last 3 Months or Most Recently Relevant to Health Maintenance Care Teams Time Recorder Relationship Specialty Start Date End Date Nma Hennessy MD [address] [place] [id number] PCP - General 05/21/15
--- OUTSIDE RECORDS SUMMARY | 2024-03-03 14:24 | XMS_ITS | Encounter Summary ---
Author Organization [facility] Address [address] [place] [address] Care Team Providers Care Social Work Supervisor Name Role Phone Nam Hennessy MD Primary Care Provider [phone] Encounter Details Date Type Department Care Team (Late st Contact Info) Description 01/01/2023 Lab Requisition [facility] Pathology & Laboratory Medicine - [address] [address] Outr Resulting Lab, Provider Social History Tobacco [...] Procedure Name Priority Date/Time Associated Diagnosis Comments PSA TOTAL, DIAGNOSTIC Routine 01/01/2023 9:59 EDT documented in this encounter Results * PSA TOTAL, DIAGNOSTIC (01/01/2023 9:59 EDT) PSA 0.5 <=3.5 ng/mL 01/02/2023 10:32 EDT [facility] Blood VENOUS BLOOD / Unknown 01/01/2023 9:59 EDT 01/01/2023 21:20 EDT Narrative [facility] - 01/02/2023 10:32 EDT NOTE: Serum PSA concentration should not be interpreted as absolute evidence for the presence or absence of malignant disease. Assayed on Siemens [employer]aur XPT using chemiluminescent technology.??Values obtained by using different assay methods cannot be used interchangeably. Provider Outr Resulting Lab CHEMISTRY & BLOOD GAS ORDERABLES [facility] [address] [place] [address] documented in this encounter Visit Diagnoses Not on filedocumented in this encounter Care Teams Social Work Supervisor Relationship Specialty Start Date End Date Nam Hennessy MD [address] [place] [id number] PCP - General 05/21/15 documented as of this encounter
--- OUTSIDE RECORDS SUMMARY | 2024-03-03 14:24 | XMS_ITS | Encounter Summary ---
Author Organization [facility] Address [address] [place] [address] Care Team Providers Care Box Lining Machine Feeder Name Role Phone Nam Hennessy MD Primary Care Provider [phone] Encounter Details Date Type Department Care Team (Latest Contact Info) Description 04/02/2017 13:26 EDT - 04/02/2017 23:59 EDT Hospital Encounter [address] [address] Unknown, Provider, Discharge Disposition: Home or Self Care Social History Tobacco Use Types Packs/Day Years Used Date Smoking Tobacco: Never Assessed Sex and Gender Information Value Date Recorded Sex Assigned at Not on file Gender Identity Not on file Sexual Orientation Not on file documented as of this encounter Discharge Disposition Disposition Code Departure Means Destination Home or Self Usp documented in this encounter Plan of Treatment Not on file documented as of this encounter Visit Diagnoses Not on filedocumented in this encounter Care Teams Box Lining Machine Feeder Relationship Specialty Start Date End Date Nam Hennessy MD [address] [place] [id number] PCP - General 05/21/15 documented as of this encounter
--- OUTSIDE RECORDS SUMMARY | 2024-03-03 14:24 | XMS_ITS | Encounter Summary ---
Author Organization [facility] Address [address] [place] [address] Care Team Providers Care Hand Filer Balance Wheel Name Role Phone Nam Hennessy MD Primary Care Provider Encounter Details Date Type Department Care Team (Late st Contact Info) Description 04/02/2017 Results Only [facility] [phone] Ron Gilmore, DO [address] [place] [address] Social History Tobacco Use Types Packs/Day Years Used Date Smoking Tobacco: Never Assessed Sex and Gender Information Value Date Recorded Sex Assigned at Not on file Gender Identity Not on file Sexual Orientation Not on file documented as of this encounter Plan of Treatment Not on file documented as of this encounter Procedures Procedure Name Priority Date/Time Associated Diagnosis Comments SURGICAL PATHOLOGY Routine 04/02/2017 9:24 EDT documented in this encounter Results * SURGICAL PATHOLOGY (04/02/2017 9:24 EDT) Pathology Report: SURGICAL PATHOLOGY REPORT Reports generated via electronic interface contain original data; however they are lacking the format of the original report. Caution should be taken when reading/interpret ing unformatted reports. Name: ? STEPHON WEEKS ? Accession #: ? [id number] ? : ? 1970 (Age: 46) ??M ? Collect Date: ? 04/02/2017 ? Location: ? [facility] ? Receive Date: ? 04/03/2017 ? Provider: RON GILMORE DO Copy to: TSERING Carol SONALI DO ? Final Pathologic Diagnosis: ANAL LESION, BIOPSY: - Subcutaneous abscess with marked acute inflammation foreign body giant cell reaction. - Overlying squamous mucosa with reactive changes; Negative for dysplasia. - See comment. Comment: The anal lesion biopsy shows a deep abscess tract which appears to follow an adnexal structure. Although there are foreign body giant cells containing debris, the biopsy is negative for well-formed granulomas. Document reviewed and electronically signed by: YANICK ONEILL MD Report ??Date: 04/07/2017 11:27 By the signature above, the attending physician certifies that he/she has personally conducted a gross and/or microscopic examination of the described specimens and rendered or confirmed the above diagnosis. Specimen(s) Received: Anal lesion Clinical History: Anal pain Gross Description: ? Received in formalin labelled with proper patient identification (initials M, M) and anal lesion is a single rodríguez-white tissue (0.9 x 0.5 x 0.5 cm). Trisected and submitted in 1. Rossana Forbes 04/03/2017 9:44 AM End of Report [facility] 04/02/2017 9:24 EDT 04/03/2017 9:24 EDT Ron Gilmore DO PATHOLOGY ORDERABLES [facility] [address] [place] [address] documented in this encounter Visit Diagnoses Not on filedocumented in this encounter Care Teams Hand Filer Balance Wheel Relationship Specialty Start Date End Date Nam Hennessy MD [address] [place] [address] PCP - General 05/21/15 documented as of this encounter
--- OUTSIDE RECORDS SUMMARY | 2024-03-03 14:24 | XMS_ITS | Encounter Summary ---
Author Organization [facility] Address [address] [place] [address] Care Team Providers Care Coagulator Name Role Phone Nam Hennessy MD Primary Care Provider [phone] Encounter Details Date Type Department Care Team (Late st Contact Info) Description 10/09/2023 Lab Requisition [facility] Pathology & Laboratory Medicine - [address] [address] Outr Resulting Lab, Provider Social History Tobacco [...] Procedure Name Priority Date/Time Associated Diagnosis Comments VITAMIN D (25,OH) Routine 10/09/2023 13: 45 EDT T3, TOTAL Routine 10/09/2023 13:45 EDT CARBAMAZEPINE Routine 10/09/2023 13:45 EDT documented in this encounter Results * CARBAMAZEPINE (10/09/2023 13:45 EDT) Carbamazepine 9.7 4.0 - 12.0 ??g/mL 10/09/2023 23:33 EDT [facility] Blood VENOUS BLOOD / Unknown 10/09/2023 13:45 EDT 10/09/2023 22:25 EDT Provider Outr Resulting Lab CHEMISTRY & BLOOD GAS ORDERABLES [facility] [address] [place] [address] * VITAMIN D (25,OH) (10/09/2023 13:45 EDT) 25OH Vitamin D Tot 33 30 - 100 ng/mL 10/10/2023 10:32 EDT [facility] Comment: Vitamin D 25,OH Interpretive Ranges: Deficiency: ??<10.0 ng/mL Insufficiency: ??10.0 - 30.0 ng/mL Sufficiency: ??30.0 - 100.0 ng/mL Toxicity: ??>100.0 ng/mL Blood VENOUS BLOOD / Unknown 10/09/2023 13:45 EDT 10/09/2023 22:25 EDT Provider Outr Resulting Lab CHEMISTRY & BLOOD GAS ORDERABLES Performing Organization Address [facility]/ZIP Co de Phone Number [facility] [address] [place] [address] * T3, TOTAL (10/09/2023 13:45 EDT) T3, Total 119 97 - 169 ng/dL 10/09/2023 23:09 EDT [facility] Blood VENOUS BLOOD / Unknown 10/09/2023 13:45 EDT 10/09/2023 22:25 EDT Provider Outr Resulting Lab CHEMISTRY & BLOOD GAS ORDERABLES [facility] [address] [place] [address] documented in this encounter Visit Diagnoses Not on filedocumented in this encounter Care Teams Coagulator Relationship Specialty Start Date End Date Nam Hennessy MD [address] [place] [id number] PCP - General 05/21/15 documented as of this encounter
--- OUTSIDE RECORDS SUMMARY | 2024-03-03 14:24 | XMS_ITS | Clinical Summary ---
Author Organization [facility] Address [address] [place] [id number] Care Team Providers Care Medicaid Specialist Name Role Phone Nam Hennessy MD Primary Care Provider [phone] Social History Tobacco Use Types Packs/Day Years Used Date Smoking Tobacco: Never Assessed Interpersonal Safety Answer Date Record ed Physically Hurt Never 01/30/2020 Verbally Threaten Not on file 01/30/2020 Sex and Gender Information Value Date Recorded Sex Assigned at Not on file Gender Identity Not on file Sexual Orientation Not on file Plan of Treatment Health Maintenance Due Date Last Done Comments Hepatitis B Vaccine (1 of 3 - 19+ 3-dose series) 10/07 COVID-19 Vaccine ( season) 2024 Hepatitis C Screen Completed 12/20/2021 Procedures Procedure Name Priority Date/Time Associated Diagnosis Comments HEPATITIS C AB W REFLEX TO HCV RNA BY PCR Routine 12/20/2021 10:13 EDT from Last 3 Months or Most Recently Relevant to Health Maintenance Results * HEPATITIS C AB W REFLEX TO HCV RNA BY PCR (12/20/2021 10:13 EDT) Hep C Antibody Negative Negative 12/21/2021 10:15 EDT [facility] Blood VENOUS BLOOD / Unknown 12/20/2021 10:13 EDT 12/20/2021 21:24 EDT Provider Outr Resulting Lab CHEMISTRY & BLOOD GAS ORDERABLES [facility] [address] [place] [address] from Last 3 Months or Most Recently Relevant to Health Maintenance Care Teams Medicaid Specialist Relationship Specialty Start Date End Date Nam Hennessy MD [address] [place] [id number] PCP - General 05/21/15
--- OUTSIDE RECORDS SUMMARY | 2024-03-03 14:24 | XMS_ITS | Encounter Summary ---
Author Organization [facility] Address [address] [place] [address] Care Team Providers Care Press Operator Carbon Blocks Name Role Phone Unavailable Primary Care Provider Unavailabl e Encounter Details Date Type Department Care Team (Latest Contact Info) Description 08/05/2000 10:49 EST - 08/05/2000 11:59 EST Hospital Encounter [facility] [address] [place] [address] Ananda Shukla MD [address] [place] [phone] Discharge Disposition: Auto Discharge Social History Tobacco Use Types Packs/Day Years Used Date Smoking Tobacco: Never Assessed Sex and Gender Information Value Date Recorded Sex Assigned at Not on file Gender Identity Not on file Sexual Orientation Not on file documented as of this encounter Discharge Disposition Disposition Code Departure Means Destination Auto Discharge documented in this encounter Plan of Treatment Not on file documented as of this encounter Procedures Procedure Name Priority Date/Time Associated Diagnosis Comments SURGICAL PATHOLOGY Routine 08/05/2000 0:00 EST documented in this encounter Results * SURGICAL PATHOLOGY (08/05/2000 0:00 EST) Pathology Report: SURGICAL PATHOLOGY REPORT Reports generated via electronic interface contain original data; however they are lacking the format of the original report. Caution should be taken when reading/interpreti ng unformatted reports. Name: ? STEPHON WEEKS ? Accession #: ? [id number] ? : ? 1970 (Age: 29) ??M ? Collect Date: ? 08/05/2000 ? Location: ? [facility] ? Receive Date: ? 08/06/2000 ? Provider: ANANDA SHUKLA MD Copy to: ? Final Pathologic Diagnosis: ? Foreskin, excision: - Chronic inflammation and fibrosis consistent with phimosis. Document reviewed and electronically signed by: Jazmine Parsons MD Report ??Date: 08/07/2000 16:46 By the signature above, the attending physician certifies that he/she has personally conducted a gross and/or microscopic examination of the described specimens and rendered or confirmed the above diagnosis. Specimen(s) Received: ? Foreskin from penis Clinical History: ? Phimosis Gross Description: ? Received in normal saline labelled Weeks and #1 foreskin are two wrinkled portions of pink-white and rodríguez-brown foreskin which measure 5.0 x 2.5 x 0.9 cm and 5.5 x 2.0 x 0.8 cm. ??No abnormalities are noted grossly. Paint Laboratory Technician sections are submitted as (A1) and (A2). ??(KIMBERLY Duffy)/arielle End of Report [facility] 08/05/2000 08/06/2000 8:5 5 EST Ananda Shukal MD PATHOLOGY ORDERABLES [facility] [address] [place] [address] documented in this encounter Visit Diagnoses Not on filedocumented in this encounter
== END 2024-03-03 14:23 | disposition home or self-care (01) ==
LOC: LBO 14:23
PROVIDERS: PCP Family Medicine; Visit Provider Family Medicine
DX: R56.9 Unspecified convulsions (principal)
CPT/HCPCS: 36415; 80156

== ENCOUNTER 2024-11-24 02:19 | Outpatient (CLI) | payer MEDICARE, MEDICAID, SELFPAY ==
[2024-11-24 13:03] LABS: ALT 18 U/L (16-63); AST 15 U/L (15-37); Albumin 4.1 g/dL (3.4-5.0); Alkaline Phosphatase 97 U/L (46-116); Anion Gap 5.7 mmol/L (3-11); BUN 10 mg/dL (7-18); Bilirubin, Total 0.3 mg/dL (0.2-1.0); CO2 32.3 mmol/L (21.0-32.0); CREATININE 0.8 mg/dL (0.70-1.30); Calcium 9.2 mg/dL (8.5-10.1); Chloride 102 mmol/L (98-107); Cholesterol 205 mg/dL (<200); Estimated GFR 106.48 (mL/min/1.73m2); Glucose 106 mg/dL (74-106); HDL Cholesterol 32 mg/dL (>or=40); Potassium 4.1 mmol/L (3.5-5.1); Sodium 140 mmol/L (136-145); Total Protein 7.6 g/dL (6.4-8.2); Triglyceride 459 mg/dL (<150)
[2024-11-24 13:24] LABS: LDL CHOLESTEROL 107 mg/dL (<100)
== END 2024-11-24 02:20 | disposition home or self-care (01) ==
LOC: LOS 02:19
PROVIDERS: PCP Family Medicine; Visit Provider Family Medicine
DX: Z00.00 Encounter for general adult medical examination without abnormal findings (principal); G40.309 Generalized idiopathic epilepsy and epileptic syndromes, not intractable, without status epilepticus
CPT/HCPCS: 36415; 80053; 80061; 83721; 80156

== ENCOUNTER 2025-04-11 03:37 | Outpatient (CLI) | payer MEDICARE, MEDICAID, SELFPAY ==
[2025-04-11 14:24] LABS: Hemoglobin A1C 5.3 % (<5.7)
== END 2025-04-11 03:38 | disposition home or self-care (01) ==
LOC: LOS 03:37
PROVIDERS: PCP Family Medicine; Visit Provider Family Medicine
DX: Z13.1 Encounter for screening for diabetes mellitus (principal); Z00.00 Encounter for general adult medical examination without abnormal findings
CPT/HCPCS: 36415; 83036